=== PATIENT | female | born 1960 | race Caucasian/White ===

== ENCOUNTER 2018-01-16 13:30 | Outpatient (RCR) | payer BC ==
[2017-10-20 13:30] VITALS: BP 130/74
[2017-10-20] MEDS: OMALIZUMAB 150 MG (XOLAIR) VIAL FREE STOCK SQ SCH (13:58)
[2017-10-20 14:16] VITALS: BP 130/74
[2017-11-21 13:00] VITALS: BP 128/80
[2017-11-21] MEDS: OMALIZUMAB 150 MG (XOLAIR) VIAL FREE STOCK SQ SCH (13:32)
[2017-12-19] MEDS: OMALIZUMAB 150 MG (XOLAIR) VIAL FREE STOCK SQ SCH (13:39)
[2017-12-19 13:40] VITALS: BP 139/81
[~2018-01-16] VITALS: Ht 172.7 cm; Wt 86.5 kg
[2018-01-16 14:06] VITALS: BP 134/82
[2018-01-16] MEDS: OMALIZUMAB 150 MG (XOLAIR) VIAL FREE STOCK SQ SCH (14:15)
== END 2018-01-18 | disposition home or self-care (01) ==
LOC: SDC 13:30
PROVIDERS: ATTEND Internal Medicine
DX: L50.8 Other urticaria (principal)
CPT/HCPCS: 96372

== ENCOUNTER → 2018-01-16 | Outpatient (CLI) | payer BC ==
[~2018-01-16] MED LIST: ATOR20TA66 PO; CIME200T86 PO; FEXO1TAB40 PO; PRD1T PO
== END ==
LOC: RAD 11:15
PROVIDERS: ATTEND Internal Medicine
DX: Z12.31 Encounter for screening mammogram for malignant neoplasm of breast (principal)
CPT/HCPCS: 77067

== ENCOUNTER 2018-02-08 06:22 | Outpatient (CLI) | payer BC ==
[~2018-02-08] VITALS: Ht 172.7 cm; Wt 81.9 kg
[2018-02-09] MEDS ORDERED: MONT10TA24 PO (11:09)
[2018-02-09] MEDS ORDERED: CHOL200059 PO (11:09)
[2018-02-09] MEDS ORDERED: CALC-823 PO (11:09)
[2018-02-09] MEDS ORDERED: VNL75T PO (11:09)
== END 2018-02-09 12:30 | disposition home or self-care (01) ==
LOC: PREOP 06:22
PROVIDERS: ATTEND Surgery
DX: Z01.818 Encounter for other preprocedural examination (principal)

== ENCOUNTER 2018-02-15 11:51 | Day surgery (SDC) | payer BC ==
[~2018-02-15] VITALS: Ht 172.7 cm; Wt 81.9 kg
[~2018-02-15 11:51] MED LIST changes: +CALC-823 PO; +CHOL200059 PO; +MONT10TA24 PO; +VNL75T PO
[2018-02-15] MEDS ORDERED: LACTATED RINGERS 1,000 ML IV STA (11:56)
[2018-02-15] MEDS ORDERED: LACTATED RINGERS 1,000 ML IV ONE (11:57)
[2018-02-15 12:03] VITALS: BP 130/100
[2018-02-15] MEDS ORDERED: proPOfol 200 MG/20 ML (DIPRIVAN) VIAL IV ONE ×2 (13:15→13:43)
[2018-02-15] MEDS ORDERED: MIDAZOLAM 2 MG/2 ML (VERSED) VIAL ONE (13:15)
--- NOTE | 2018-02-15 13:23 | Progress Note-Pre Operative ---
Pre-Operative Progress Note H&P Reviewed The H&P was reviewed, patient examined and no changes noted. Time Seen by Provider: 13:20 Date H&P Reviewed: Feb 15, 2018 Time H&P Reviewed: 13:21 Pre-Operative Diagnosis: Change in bowel habits MELY CASTILLO DO Feb 15, 2018 13:23
[2018-02-15 13:50] VITALS: BP 114/62
--- NOTE | 2018-02-15 13:52 | Progress Note-Post Operative ---
Post-Operative Progess Note Surgeon (s)/Bulk Loader (s) Surgeon MELY CASTILLO DO Bulk Loader: Bhargav Glynn MSIII Pre-Operative Diagnosis Change in bowel habits Post-Operative Diagnosis Polyps Int Hemorrhoids Procedure & Operative Findings Date of Procedure 02/15/18 Procedure Performed/Findings Colon with snare Anesthesia Type IV sedation by FICTION AND NONFICTION PROSE WRITER Estimated Blood Loss Estimated blood loss (mL): scant Specimens/Packing Specimens Removed Asc colon polyp desc colon polyp MELY CASTILLO DO Feb 15, 2018 13:52
--- NOTE | 2018-02-15 13:55 | Endoscopy Discharge Instruct ---
Endo Procedure/Findings Findings 1.: Polyp 2.: Internal Hemorrhoids Discharge Instructions - Activity: You might feel a little sleepy until tomorrow. This is due to the medicine you received to relax you. Until tomorrow, you should: NOT drive a car, operate machinery or power tools. NOT drink any alcoholic beverages. NOT make any important decisions or sign importortant papers. Do not return to work until tomorrow, unless otherwise instructed. Resume previous activities tomorrow. Diet: Start by taking liquids. If you tolerate liquids, advance to solid food. Make an appointment for one week. Notify Physician - If you experience excessive bleeding, unusual abdominal pain, fever, or chest pain, contact your doctor immediately. Follow-Up: - I have received and understand the above instructions and will call my doctor if I have any further questions. Patient Signature Date Nurse Signature Other (Relationship) MELY CASTILLO DO Feb 15, 2018 13:55
[2018-02-15 14:00] VITALS: BP 119/64
[2018-02-15 14:10] VITALS: BP 129/72
--- NOTE | 2018-02-15 14:22 | Anesthesia-General Post-Op ---
MAC Patient Condition Mental Status/LOC: Same as Preop Cardiovascular: Satisfactory Nausea/Vomiting: Absent Respiratory: Satisfactory Pain: Controlled Complications: Absent Post Op Complications Complications None Follow Up Care/Instructions Patient Instructions None needed. Anesthesiology Discharge Order Discharge Order Patient is doing well, no complaints, stable vital signs, no apparent adverse anesthesia problems. No complications reported per nursing. CHRISTINA YEH CRNA Feb 15, 2018 14:22
[2018-02-15 14:30] VITALS: BP 122/68
[2018-02-15 14:35] VITALS: BP 122/68
--- NOTE | 2018-02-15 16:44 | OPERATIVE REPORT ---
DATE OF SERVICE: 02/15/2018 PREOPERATIVE DIAGNOSIS: Screening colonoscopy, change in bowel habits. POSTOPERATIVE DIAGNOSES: 1. Colon polyps. 2. Internal hemorrhoids. PROCEDURE: Colonoscopy with snare polypectomy. SURGEON: Arslan Le DO FLOW COORDINATOR: Bhargav Glynn MS3. SPECIMEN: One polyp from the ascending colon and one polyp from the descending colon. BLOOD LOSS: Scant. FLUIDS: Per anesthesia. POSTOPERATIVE CONDITION: Stable. INDICATION FOR PROCEDURE: The patient is a 57-year-old female, who had needed a screening colonoscopy and it has been over 10 years since her last one and she also may had some change in bowel habits. FINDINGS: The patient had two polyps, one in the ascending colon, one in the descending colon and then she had some internal hemorrhoids, but no other obvious pathology seen. PROCEDURE NOTE: After informed consent was obtained, the patient was brought to the endoscopy suite, placed in the bed in left lateral decubitus position. She was administered IV sedation by the COMPLIANCE ADVISOR, who then monitored her vitals the entire time, heart rate, blood pressure and pulse ox and the scope was inserted, pushed in. On the way in, in the ascending colon just outside the cecum I saw a polyp, elected to do a snare polypectomy. Removed this en bloc and then suctioned this up. Continued to the cecum, took a picture of appendiceal orifice and noted the ileocecal valve and then slowly withdrew the scope insufflating to look circumferentially at the khan, looking at the cecum, up the ascending colon to the hepatic flexure, then down the transverse colon to the splenic flexure and then into the descending colon. In the descending colon, I saw another small flat polyp and removed this with another snare polypectomy and then continued down into the sigmoid and finally into the rectum, retroflexed in the rectal vault, saw some minimal internal hemorrhoids and then took a picture of this and then removed the scope. The patient tolerated the procedure and she was recovered in the endoscopy suite. Job ID: [id number] DocumentID: [id number] Dictated Date: 02/15/2018 13:55:23 Financial Services Counselor Date: 02/15/2018 16:43:20 Dictated By: ARSLAN LE DO [facility]
== END 2018-02-15 14:40 | disposition home or self-care (01) ==
LOC: ENDO 11:51
PROVIDERS: ATTEND Surgery
DX: D12.2 Benign neoplasm of ascending colon (principal); D12.4 Benign neoplasm of descending colon; K64.8 Other hemorrhoids; K59.00 Constipation, unspecified; E78.5 Hyperlipidemia, unspecified; Z80.3 Family history of malignant neoplasm of breast; Z79.899 Other long term (current) drug therapy
CPT/HCPCS: 88305

== ENCOUNTER → 2018-03-01 | Outpatient (CLI) | payer BC ==
--- NOTE | 2018-03-01 12:07 | Diagnostic Imaging Report ---
INDICATION: Left breast density. Patient presents for additional views. CORRELATION is made with screening study from 01/16/2018. 2-D and 3-D unilateral diagnostic mammography was performed with CAD. Scattered fibroglandular densities in the left breast are noted. There is some slight nodularity in the retroareolar left breast inferiorly, corresponding with the screening mammogram. This most likely represents fibroglandular tissue and perhaps ductal ectasia but further evaluation with ultrasound is recommended. No suspicious calcifications are seen. IMPRESSION: BI-RADS Category 0 Persistent mild nodularity in the retroareolar left breast. Further evaluation with ultrasound is recommended. ACR BI-RADS Category 0: Incomplete. (Needs additional imaging evaluation). Result letter will be mailed to the patient. Note: At least 10% of breast cancer is not imaged by mammography. Dictated by: Dictated on workstation # [id number]
--- NOTE | 2018-03-01 12:38 | Diagnostic Imaging Report ---
INDICATION: Abnormal mammogram. COMPARISON: Correlation is made to the screening mammograms from 01/16/2018 and 03/01/2018. TECHNIQUE/FINDINGS: Sonographic interrogation of the retroareolar region of the left breast was performed. No sonographic abnormality is seen. No solid or cystic mass is detected. IMPRESSION: No sonographic abnormality is seen. The patient may return to routine annual screening mammography. ACR BI-RADS Category 1: Negative. Dictated by: Dictated on workstation # [id number]
== END ==
LOC: RAD 08:55
PROVIDERS: ATTEND Internal Medicine
DX: R92.8 Other abnormal and inconclusive findings on diagnostic imaging of breast (principal)
CPT/HCPCS: 76642

== ENCOUNTER 2018-04-19 12:50 | Outpatient (RCR) | payer BC ==
[2018-02-13 13:55] VITALS: BP 132/80
[2018-03-20 13:13] VITALS: BP 126/75
[~2018-04-19] VITALS: Ht 172.7 cm; Wt 81.9 kg
[2018-04-19 12:50] VITALS: BP 136/85
[~2018-04-19 12:50] MED LIST changes: +OMALIZUMAB 150 MG (XOLAIR) VIAL FREE STOCK SQ NR; +OMALIZUMAB SUB-Q 150 MG (XOLAIR) VIAL SQ NR
[2018-04-19] MEDS ORDERED: OMALIZUMAB 150 MG (XOLAIR) VIAL FREE STOCK SQ SCH (13:15)
== END 2018-05-14 | disposition home or self-care (01) ==
LOC: SDC 12:50
PROVIDERS: ATTEND Internal Medicine
DX: L50.8 Other urticaria (principal)
CPT/HCPCS: 96372

== ENCOUNTER → 2019-01-02 | Outpatient (CLI) | payer BC ==
[~2019-01-02] MED LIST changes: -OMALIZUMAB 150 MG (XOLAIR) VIAL FREE STOCK SQ NR; -OMALIZUMAB SUB-Q 150 MG (XOLAIR) VIAL SQ NR
--- NOTE | 2019-01-02 10:43 | Diagnostic Imaging Report ---
INDICATION: Screening for osteoporosis. COMPARISON: None. FINDINGS: There are no prior studies available for comparison. The bone mineral density of the hips and spine was measured. The T score for the spine is -3.3. This does indicate osteoporosis. The total T score for the left hip is 0.1 and for the left femoral neck -0.7. These values are within normal limits. The total T score for the right hip is -1.1 and for the right femoral neck -2.0. These values fall within the range of osteopenia. AP Spine L1-L4: [BMD (g/cm2): 0.799] [T-Score: -3.3] [Z-Score: -2.6] [BMD Previous: na] [BMD % Change: na] LT Hip Neck: [BMD (g/cm2): 0.937] [T-Score: -0.7] [Z-Score: 0.2] LT Hip Total: [BMD (g/cm2):1.024] [T-Score:0.1] [Z-Score: 0.7] [BMD Previous: na] [BMD % Change: na] RT Hip Neck: [BMD (g/cm2):0.756] [T-Score:-2.0] [Z-Score:-1.1] RT Hip Total: [BMD (g/cm2):0.864] [T-score:-1.1] [Z-Score:0.5] [BMD Previous:na] [BMD % Change:na] *Indicates significant change from prior examination based on 95% confidence level. World Health Organization criteria for BMD interpretation classify patients as Normal (T-score at or above -1.0), Osteopenic (T-score between -1.0 and -2.5) or Osteoporotic (T-score at or below -2.5). LIMITATIONS AND MODIFICATION: None. FRACTURE RISK (FRAX SCORE): The ten year probability of (%): Major Osteoporotic Fracture: [9.4] Hip Fracture: [1.2] IMPRESSION: 1. There is osteoporosis of the lumbar spine. 2. The bone mineral density of the left hip and left femoral neck are within normal limits while the bone mineral density of the right hip and right femoral neck fall within the range of osteopenia. 3. See below National Osteoporosis Foundation guidelines on when to potentially initiate pharmacologic therapy. Based on the National Osteoporosis Foundation Guidelines, pharmacologic treatment should be initiated in any of the following, unless clinical conditions suggest otherwise: * Any patient with prior fragility fracture of the hip or vertebrae. A spine fracture indicates 5X risk for subsequent spine fracture and 2X risk for subsequent hip fracture. * Osteoporosis (T-score <-2.5). * Postmenopausal women and men age 50 and older with low bone mass/osteopenia (T-score between -1.0 and -2.5) by DXA and 10-year major osteoporotic fracture greater than 20% or a 10-year probability of hip fracture greater than 3%. These fracture risks are supplied above in the FRAX score, if applicable. * Clinician judgement and/or patient preferences may indicate treatment for people with 10-year fracture probabilities above or below these levels. Dictated by: Dictated on workstation # [id number]
== END ==
LOC: RAD 09:11
PROVIDERS: ATTEND Internal Medicine
DX: Z13.820 Encounter for screening for osteoporosis (principal); M81.0 Age-related osteoporosis without current pathological fracture; M85.89 Other specified disorders of bone density and structure, multiple sites
CPT/HCPCS: 77080

== ENCOUNTER → 2019-03-26 | Outpatient (CLI) | payer BC ==
--- NOTE | 2019-03-26 12:12 | Diagnostic Imaging Report ---
INDICATION: Routine screening. COMPARISON: 01/16/2018 and 12/10/2014. TECHNIQUE: 2D and 3D bilateral screening mammography was performed with CAD. FINDINGS: Scattered fibroglandular densities are identified bilaterally. The parenchymal pattern appears stable. No dominant mass or malignant appearing microcalcifications are seen. The axillae are unremarkable. IMPRESSION: No mammographic features suspicious for malignancy are identified. ACR BI-RADS Category 1: Negative. Result letter will be mailed to the patient. Note: At least 10% of breast cancer is not imaged by mammography. Dictated by: Dictated on workstation # [id number]
== END ==
LOC: RAD 08:29
PROVIDERS: ATTEND Internal Medicine
DX: Z12.31 Encounter for screening mammogram for malignant neoplasm of breast (principal)
CPT/HCPCS: 77067

== ENCOUNTER 2019-10-21 15:01 | Emergency (ER) | payer BC ==
[~2019-10-21] VITALS: Ht 170.1 cm; Wt 77.1 kg
[~2019-10-21 15:01] MED LIST changes: -MONT10TA24 PO; +MONT10TA26 PO
--- OUTSIDE RECORDS SUMMARY | 2019-10-21 15:06 | XMS REPORT | Continuity of Care Document ---
Author Organization Unknown Address Unknown Phone Unavailable Allergies Active Description Code Type Severity Reaction Onset Reported/Identified Relationship to Patient Clinical Status Yes famotidine [id number] Drug Allerg y Unknown N/A 10/20/2017 Yes No Allergy Information Available [id number] Drug Allergy Unknown N/A 018 Yes famotidine [id number] Drug Allerg y Moderate LEG SWELLING, H 02/08/2018 Medications There is no data. 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 AND 11/03/2017 MARINELLI DO, HUNTER Ot L50.9 URTICARIA, UNSPECIFIED 11/03/2017 MARINELLI DO, HUNTER Ot R73.9 HYPERGLYCEMIA, UNSPECIFIED 11/03/2017 MARINELLI DO, HUNTER Ot L50.8 OTHER URTICARIA 11/21/2017 MARINELLI DO, HUNTER Ot L50.8 OTHER URTICARIA 11/21/2017 MARINELLI DO, HUNTER Ot L50.8 OTHER URTICARIA 11/21/2017 MARINELLI DO, HUNTER Ot L50.8 OTHER URTICARIA 11/21/2017 MARINELLI DO, HUNTER Ot L50.8 OTHER URTICARIA 12/12/2017 MARINELLI DO, HUNTER Ot L50.8 OTHER URTICARIA 12/19/2017 MARINELLI DO, HUNTER Ot L50.8 OTHER URTICARIA 12/19/2017 MARINELLI DO, HUNTER Ot L50.8 OTHER URTICARIA 01/04/2018 MARINELLI DO, HUNTER Ot L50.8 OTHER URTICARIA 01/16/2018 MARINELLI DO, HUNTER Ot D49.7 NEOPLM OF UNSP BEHAV OF ENDO GLANDS AND 01/16/2018 MARINELLI DO, HUNTER Ot L50.9 URTICARIA, UNSPECIFIED 01/16/2018 MARINELLI DO, HUNTER Ot R73.9 HYPERGLYCEMIA, UNSPECIFIED 01/16/2018 MARINELLI DO, HUNTER Ot L50.8 OTHER URTICARIA 01/16/2018 MARINELLI DO, HUNTER Ot L50.8 OTHER URTICARIA 01/16/2018 MARINELLI DO, HUNTER Ot L50.8 OTHER URTICARIA 01/17/2018 MARINELLI DO, HUNTER Ot Z12.31 ENCNTR SCREEN MAMMOGRAM FOR MALIGNANT NE 01/17/2018 MARINELLI DO, HUNTER Ot L50.8 OTHER URTICARIA 01/18/2018 MARINELLI DO, HUNTER Ot L50.8 OTHER URTICARIA 01/18/2018 MARINELLI DO, HUNTER Ot L50.8 OTHER URTICARIA 02/01/2018 MARINELLI DO, HUNTER Ot Z12.31 ENCNTR SCREEN MAMMOGRAM FOR MALIGNANT NE 02/08/2018 MARINELLI DO, HUNTER Ot L50.8 OTHER URTICARIA 02/09/2018 DELMAN DO, MELY B Ot Z01.8 18 ENCOUNTER FOR OTHER PREPROCEDURAL EXAMIN 02/09/2018 DELMAN DO, MELY B Ot Z01.8 18 ENCOUNTER FOR OTHER PREPROCEDURAL EXAMIN 02/13/2018 MARINELLI DO, HUNTER Ot L50.8 OTHER URTICARIA 02/13/2018 MARINELLI DO, HUNTER Ot L50.8 OTHER URTICARIA 02/15/2018 DELMAN DO, MELY B Ot D12.2 BENIGN NEOPLASM OF ASCENDING COLON 02/15/2018 ANNA TSE, MELY B Ot D12.4 BENIGN NEOPLASM OF DESCENDING COLON 02/15/2018 KEIRAMAN DO, MELY B Ot E78.5 HYPERLIPIDEMIA, UNSPECIFIED 02/15/2018 DELMAN DO, MELY B Ot K59.0 0 CONSTIPATION, UNSPECIFIED 02/15/2018 DELMAN DO, MELY B Ot K64.8 OTHER HEMORRHOIDS 02/15/2018 DELMAN DO, MELY B Ot Z79.8 99 OTHER CARE HOME (CURRENT) DRUG THERAPY 02/15/2018 DELMAN DO, MELY B Ot Z80.3 FAMILY HISTORY OF MALIGNANT NEOPLASM OF 02/21/2018 MARINELLI DO, HUNTER Ot L50.8 OTHER URTICARIA 02/22/2018 DELMAN DO, MELY B Ot D12.2 BENIGN NEOPLASM OF ASCENDING COLON 02/22/2018 DELMAN DO, MELY B Ot D12.4 BENIGN NEOPLASM OF DESCENDING COLON 02/22/2018 DELMAN DO, MELY B Ot E78.5 HYPERLIPIDEMIA, UNSPECIFIED 02/22/2018 DELMAN DO, MELY B Ot K64.8 OTHER HEMORRHOIDS 02/22/2018 DELMAN DO, MELY B Ot Z79.8 99 OTHER CARE HOME (CURRENT) DRUG THERAPY 02/22/2018 DELMAN DO, MEYL B Ot Z80.3 FAMILY HISTORY OF MALIGNANT NEOPLASM OF 03/02/2018 DELMAN DO, MELY B Ot D12.2 BENIGN NEOPLASM OF ASCENDING COLON 03/02/2018 DELMAN DO, MELY B Ot D12.4 BENIGN NEOPLASM OF DESCENDING COLON 03/02/2018 DELMAN DO, MELY B Ot E78.5 HYPERLIPIDEMIA, UNSPECIFIED 03/02/2018 DELKRISTINE DO, MELY B Ot K59.0 0 CONSTIPATION, UNSPECIFIED 03/02/2018 DELMAN DO, MELY B Ot K64.8 OTHER HEMORRHOIDS 03/02/2018 DELMAN DO, MELY B Ot Z79.8 99 OTHER CARE HOME (CURRENT) DRUG THERAPY 03/02/2018 DELMAN DO, MELY B Ot Z80.3 FAMILY HISTORY OF MALIGNANT NEOPLASM OF 03/06/2018 MARINELLI DO, HUNTER Ot R92.8 OTH ABN AND INCONCLUSIVE FINDINGS ON DX 03/20/2018 MARINELLI DO, HUNTER Ot L50.8 OTHER URTICARIA 03/20/2018 MARINELLI DO, HUNTER Ot L50.8 OTHER URTICARIA 04/19/2018 MARINELLI DO, HUNTER Ot L50.8 OTHER URTICARIA 04/19/2018 MARINELLI DO, HUNTER Ot L50.8 OTHER URTICARIA 04/19/2018 MARINELLI DO, HUNTER Ot L50.8 OTHER URTICARIA 05/14/2018 MARINELLI DO, HUNTER Ot L50.8 OTHER URTICARIA 05/15/2018 MARINELLI DO, HUNTER Ot L50.8 OTHER URTICARIA 08/10/2018 MARINELLI DO, HUNTER Ot D49.7 NEOPLM OF UNSP BEHAV OF ENDO GLANDS AND 08/10/2018 MARINELLI DO, HUNTER Ot L50.9 URTICARIA, UNSPECIFIED 08/10/2018 MARINELLI DO, HUNTER Ot R73.9 HYPERGLYCEMIA, UNSPECIFIED 08/10/2018 MARINELLI DO, HUNTER Ot Z12.31 ENCNTR SCREEN MAMMOGRAM FOR MALIGNANT NE 08/10/2018 MARINELLI DO, HUNTER Ot R92.8 OTH ABN AND INCONCLUSIVE FINDINGS ON DX 08/10/2018 MARINELLI DO, HUNTER Ot L50.8 OTHER URTICARIA 08/15/2018 MARINELLI DO, HUNTER Ot D49.7 NEOPLM OF UNSP BEHAV OF ENDO GLANDS AND 08/15/2018 MARINELLI DO, HUNTER Ot L50.9 URTICARIA, UNSPECIFIED 08/15/2018 MARINELLI DO, HUNTER Ot R73.9 HYPERGLYCEMIA, UNSPECIFIED 08/15/2018 MARINELLI DO, HUNTER Ot Z12.31 ENCNTR SCREEN MAMMOGRAM FOR MALIGNANT NE 08/15/2018 MARINELLI DO, HUNTER Ot R92.8 OTH ABN AND INCONCLUSIVE FINDINGS ON DX 08/15/2018 MARINELLI DO, HUNTER Ot L50.8 OTHER URTICARIA 09/25/2018 MARINELLI DO, HUNTER Ot D49.7 NEOPLM OF UNSP BEHAV OF ENDO GLANDS AND 09/25/2018 MARINELLI DO, HUNTER Ot L50.9 URTICARIA, UNSPECIFIED 09/25/2018 MARINELLI DO, HUNTER Ot R73.9 HYPERGLYCEMIA, UNSPECIFIED 09/25/2018 MARINELLI DO, HUNTER Ot Z12.31 ENCNTR SCREEN MAMMOGRAM FOR MALIGNANT NE 09/25/2018 MARINELLI DO, HUNTER Ot R92.8 OTH ABN AND INCONCLUSIVE FINDINGS ON DX 09/25/2018 MARINELLI DO HUNTER Ot L50.8 OTHER URTICARIA 01/04/2019 YVES DO HUNTER Ot M81.0 AGE-RELATED OSTEOPOROSIS W/O CURRENT PAT 01/04/2019 MARINELLI DO HUNTER Ot M85.89 OTH DISRD OF BONE DENSITY AND STRUCTURE, 01/04/2019 MARINELLI DO HUNTER Ot Z13.82 0 ENCOUNTER FOR SCREENING FOR OSTEOPOROSIS 01/18/2019 MARINELLI DO HUNTER Ot M81.0 AGE-RELATED OSTEOPOROSIS W/O CURRENT PAT 01/18/2019 MARINELLI DO, HUNTER Ot M85.89 OTH DISRD OF BONE DENSITY AND STRUCTURE, 01/18/2019 MARINELLI DO HUNTER Ot Z13.82 0 ENCOUNTER FOR SCREENING FOR OSTEOPOROSIS 03/27/2019 YVES TSE HUNTER Ot Z12.31 ENCNTR SCREEN MAMMOGRAM FOR MALIGNANT NE 10/21/2019 YVES TSE HUNTER Ot D49.7 NEOPLM OF UNSP BEHAV OF ENDO GLANDS AND 10/21/2019 MARINELLI DO HUNTER Ot L50.9 URTICARIA, UNSPECIFIED 10/21/2019 MARINELLI DO HUNTER Ot R73.9 HYPERGLYCEMIA, UNSPECIFIED 10/21/2019 MARINELLI DO HUNTER Ot Z12.31 ENCNTR SCREEN MAMMOGRAM FOR MALIGNANT NE 10/21/2019 YVES TSE HUNTER Ot R92.8 OTH ABN AND INCONCLUSIVE FINDINGS ON DX 10/21/2019 YVES TSE HUNTER Ot L50.8 OTHER URTICARIA 10/21/2019 YVES DO HUNTER Ot M81.0 AGE-RELATED OSTEOPOROSIS W/O CURRENT PAT 10/21/2019 MARINELLI DO HUNTER Ot M85.89 OTH DISRD OF BONE DENSITY AND STRUCTURE, 10/21/2019 YVES TSE HUNTER Ot Z13.82 0 ENCOUNTER FOR SCREENING FOR OSTEOPOROSIS 10/21/2019 YVES TSE HUNTER Ot Z12.31 ENCNTR SCREEN MAMMOGRAM FOR MALIGNANT NE Procedures There is no data. Results Test Result Range [id number] - 10/20/17 11:12 Serum or plasma urea nitrogen measurement (mass/volume ) 26 mg/dL 7-18 Serum or plasma creatinine measurement (mass/volume) 0.77 mg/dL 0.60-1.30 Serum or plasma urea nitrogen/creatinine mass ratio 34 NRG Serum or plasma creatinine measurement w ith calculation of estimated glomerular filtration rate > NRG Encounters ACCT No. Visit Date/Time Discharge Status Pt. Type Provider Facility Loc./Unit Complaint [id number] 03/26/2019 08:29:00 23:59:59 CLS Outpatient HUNTER MARINELLI DO [facility] RAD SCREENING [id number] 01/02/2019 09:11:00 019 23:59:59 CLS Outpatient HUNTER MARINELLI DO [facility] RAD OSTEOPENIA OF MULTIPLE SITES [id number] 05/17/2018 12:00:00 019 23:59:59 CLS Preadmit HUNTER MARINELLI DO [facility] CHRONIC URTICARIA [id number] 05/15/2018 00:12:00 019 23:59:59 CLS Preadmit HUNTER MARINELLI DO [facility] CHRONIC URTICARIA [id number] 04/19/2018 12:50:00 019 00:01:00 DIS Outpatient YVES TSE HUNTER [facility] CHRONIC URTICARIA [id number] 03/01/2018 08:55:00 018 23:59:59 CLS Outpatient YVES TSE HUNTER [facility] RAD ABN MAMMO OF LT BREAST [id number] 02/15/2018 11:51:00 018 14:40:00 DIS Outpatient MELY CASTILLO DO [facility] ENDO SCREENING [id number] 02/08/2018 06:22:00 018 12:30:00 DIS Outpatient MELY CASTILLO DO [facility] PREOP COLONOSCOPY [id number] 01/16/2018 13:30:00 018 00:01:00 DIS Outpatient YVES TSE HUNTER [facility] CHRONIC URTICARIA [id number] 01/16/2018 11:15:00 018 23:59:59 CLS Outpatient YVES TSE HUNTER [facility] RAD SCREENING [id number] 10/20/2017 10:46:00 018 23:59:59 CLS Outpatient YVES TSE HUNTER [facility] RAD NEOPLASM OF UNSPECIFED OF ENDOCRINE GLANDS [id number] 10/21/2019 15:02:[address] Emergency TESSIE RODRIGUEZ, WILNER Dumas [facility] ER FALL/BACK PAIN
[2019-10-21] MEDS ORDERED: ONDANSETRON 4 MG (ZOFRAN) ORAL DISSOLVE TAB PO ONE (15:45)
--- NOTE | 2019-10-21 17:18 | Diagnostic Imaging Report ---
EXAMINATION: CT lumbar spine without contrast. TECHNIQUE: Multiple contiguous axial images were obtained through the lumbar spine without the use of intravenous contrast. Sagittal and coronal reformations were then performed. All CT scans use one or more of the following dose optimizing techniques: automated exposure control, MA and/or KvP adjustment based on patient size and exam type or iterative reconstruction. HISTORY: Fall. COMPARISON: None available. FINDINGS: There is mild dextrocurvature of the lumbar spine with right lateral listhesis of L3 on L4. There is an acute appearing mild compression fracture of L1 with approximately 20% height loss. There is no retropulsion. There is mild multilevel degenerative facet disease. There is multilevel degenerative disc disease most pronounced at L3-L4 and L2-L3. There is no spinal canal stenosis. Limited views of the abdomen and pelvis show no soft tissue abnormality. The aorta is normal. IMPRESSION: Acute appearing mild compression fracture of L1 with approximately 20% height loss. No retropulsion. Dictated by: Dictated on workstation # [id number]
--- NOTE | 2019-10-21 17:31 | ED Back Pain ---
General Chief Complaint: Back Problems Stated Complaint: FALL/BACK PAIN Nursing Triage Note: Pt reports walking and carrying something when pt fell and landed on the R side with a twisting motion. Pt reports pain is worse in the lower back area and pt cannot sit in a chair. Pt reports pain is relieved some with lying or standing. Nursing Sepsis Screen: No Definite Risk Allergies and Home Medications Allergies Coded Allergies: famotidine (Unverified Allergy, Intermediate, LEG SWELLING, HIVES, 02/08/18) Home Medications Atorvastatin Calcium 20 Mg Tablet, 20 MG PO HS, (Reported) Calcium Carbonate 500 Mg Tablet, 500 MG PO DAILY, (Reported) Cholecalciferol (Vitamin D3) 2,000 Unit Tablet, 2,000 UNIT PO DAILY, (Reported) Cimetidine 200 Mg Tablet, 200 MG PO BID, (Reported) Fexofenadine/Pseudoephedrine 1 Each Tab.er.12h, 1 EACH PO BID, (Reported) Montelukast Sodium 10 Mg Tablet, 10 MG PO DAILY, (Reported) Venlafaxine HCl 75 Mg Tab, 75 MG PO DAILY, (Reported) Past Pbcnzfw-Fedurl-Ocyctz Hx Patient Social History Alcohol Use: Occasionally Uses Recreational Drug Use: No 2nd Hand Smoke Exposure: No Recent Foreign Travel: No Contact w/Someone Who Travel: No Recent Infectious Disease Expo: No Recent Hopitalizations: No Immunizations Up To Date Tetanus Booster (TDap): Unknown Seasonal Allergies Seasonal Allergies: Yes Past Medical History Surgeries: Yes (LUMPECTOMY) Respiratory: No Currently Using CPAP: No Currently Using BIPAP: No Cardiac: Yes High Cholesterol Neurological: No Reproductive Disorders: No Female Reproductive Disorders: Denies SELLING SPECIALIST History: Menopausal Sexually Transmitted Disease: No HIV/AIDS: No Gastrointestinal: Yes (CHANGE IN BOWELS) Musculoskeletal: Yes (OSTEOARTHRITIS) Endocrine: No Loss of Vision: Denies Hearing Impairment: Denies Cancer: No Psychosocial: Yes Depression Integumentary: No Blood Disorders: No Adverse Reaction/Blood Tranf: No (N/A) Physical Exam Vital Signs Vital Signs - First Documented 10/21/19 15:03 Temp 36.4 Pulse 77 Resp 20 B/P (MAP) 151/83 (105) Pulse Ox 100 O2 Delivery Room Air Capillary Refill : Less Than 3 Seconds Height, Weight, BMI Height: 5'8.00" Weight: 180lbs. 10.0oz. 81.476210zx; 26.00 BMI Method: Progress/Results/Core Measures Results/Orders My Orders Orders - PEPPER HARPER Hydrocodone/Apap 5/325 Tablet (Lortab 5 (10/21/19 18:15) Rx-Tramadol Hcl (Rx-Ultram) (10/21/19 18:07) Medications Given in ED Current Medications Medications Dose Ordered Sig/Luis Route Start Time Stop Time Status Last Admin Dose Admin Acetaminophen/ Hydrocodone Bitart 1 tab ONCE ONCE PO 10/21/19 18:15 10/21/19 18:16 DC 10/21/19 18:22 1 TAB Ondansetron HCl 4 mg ONCE ONCE PO 10/21/19 15:45 10/21/19 15:46 DC 10/21/19 15:57 4 MG Vital Signs/I&O 10/21/19 10/21/19 15:03 18:25 Temp 36.4 36.4 Pulse 77 81 Resp 20 20 B/P (MAP) 151/83 (105) 157/88 (105) Pulse Ox 100 98 O2 Delivery Room Air Room Air Blood Pressure Mean: 105 Progress Progress Note : Progress Note [address] Mcqueen, reviewed CT L1 compression fx. Patient reports pain is tolerable, if she is lying. Will give Hydrocodone for pain, walker for ambulation. Neurovascular status intact bilateral lower extremities, pain only in low back. 1744 May consider appt with Dr. Valentin for kyphoplasty, since loss of 20%, could be treated conservatively. Discharge instructions and return precautions reviewed with the patient. Diagnostic Imaging Diagonstic Imaging: CT Comments NAME: SEBASTIÁN BROWN [facility] REC#: [id number] PT STATUS: REG ER : 1960 PHYSICIAN: WILNER KURTZ MD ADMIT DATE: 10/21/19/ER Draft Date of Exam:10/21/19 CT LUMBAR SPINE WO EXAMINATION: CT lumbar spine without contrast. TECHNIQUE: Multiple contiguous axial images were obtained through the lumbar spine without the use of intravenous contrast. Sagittal and coronal reformations were then performed. All CT scans use one or more of the following dose optimizing techniques: automated exposure control, MA and/or KvP adjustment based on patient size and exam type or iterative reconstruction. HISTORY: Fall. COMPARISON: None available. FINDINGS: There is mild dextrocurvature of the lumbar spine with right lateral listhesis of L3 on L4. There is an acute appearing mild compression fracture of L1 with approximately 20% height loss. There is no retropulsion. There is mild multilevel degenerative facet disease. There is multilevel degenerative disc disease most pronounced at L3-L4 and L2-L3. There is no spinal canal stenosis. Limited views of the abdomen and pelvis show no soft tissue abnormality. The aorta is normal. IMPRESSION: Acute appearing mild compression fracture of L1 with approximately 20% height loss. No retropulsion. Dictated on workstation # [id number] Dict: 10/21/19 171 Trans: 10/21/191716 [facility] [id number] Interpreted by: RANJAN JEWELL MD Electronically signed by: Reviewed: Reviewed by Me Departure Impression Primary Impression: Compression fracture of L1 lumbar vertebra Qualified Codes: S32.010A - Wedge compression fracture of first lumbar vertebra, initial encounter for closed fracture Additional Impression: Fall Qualified Codes: W19.XXXA - Unspecified fall, initial encounter Disposition: 01 HOME, SELF-CARE Condition: Improved Departure-Patient Inst. Decision time for Depature: 17:35 Referrals: HUNTER MARINELLI DO (PCP/Family) Primary Care Physician YEMI VALENTIN MD Patient Instructions: Low Back Pain (DC), Vertebral Compression Fracture (DC) Add. Discharge Instructions: Ice to low back for 20 minutes every 2 hours while awake for the first 24 hours then you may alternate between heat and ice. Use a walker as needed for ambulation. You may alternate between Tylenol 650 mg and ibuprofen 600 mg every 4 hours for pain. You may use the tramadol for more severe pain. Follow-up with Dr. Marinelli if symptoms are not improving or worsen. Call to schedule an appointment with Dr. Valentin and you can discussed kyphoplasty. Return to the emergency department for new, urgent health care needs. All discharge instructions reviewed with patient and/or family. Voiced understanding. Copy Copies To 1: HUNTER MARINELLI DO Copies To 2: YEMI VALENTIN MD, AMY ARNP Oct 21, 2019 17:31
[2019-10-21] MEDS ORDERED: RX-TRAMADOL 50 MG (ULTRAM) TAB PPK#4 PO STA (18:07)
[2019-10-21] MEDS ORDERED: HYDROcodone/APAP 5 MG/325 MG (LORTAB) TAB PO ONE (18:15)
[2019-10-21 18:25] VITALS: BP 157/88
== END 2019-10-21 18:28 | disposition home or self-care (01) ==
LOC: EDUNIT# 15:01 → ER 15:02
DX: S32.010A Wedge compression fracture of first lumbar vertebra, initial encounter for closed fracture (principal); W19.XXXA Unspecified fall, initial encounter; E78.00 Pure hypercholesterolemia, unspecified; M19.91 Primary osteoarthritis, unspecified site; F32.9 Major depressive disorder, single episode, unspecified
CPT/HCPCS: 72131

== ENCOUNTER → 2019-10-25 | Outpatient (CLI) | payer BC ==
--- NOTE | 2019-10-25 11:44 | Diagnostic Imaging Report ---
PROCEDURE: MRI lumbar spine. TECHNIQUE: Multiplanar, multisequence MRI of the lumbar spine was performed without contrast. INDICATION: Fall. Lumbar spine fracture. COMPARISON: CT lumbar spine without contrast 10/21/2019. FINDINGS: There are 5 lumbar-type vertebral bodies for the purposes of this report. Superior endplate compression deformity of L1 results in approximately 30% height loss. There is edema within the vertebral body. No retropulsion or involvement of the posterior elements is identified. Vertebral body heights are otherwise preserved. Diffuse Modic type I degenerative endplate changes at every level of the lumbar spine. Schmorl's nodes in the superior endplates of L2 and L4. No abnormal signal in the conus which terminates at the level of L1. Normal morphology of the cauda equina. Visualized paravertebral soft tissues are unremarkable. L1-L2: No spinal canal, lateral recess or neural foraminal narrowing. There is increased fluid within the facet joints. L2-L3: Disc space height loss contributes to mild bilateral neural foraminal narrowing. Facet arthropathy and annular disc bulges result in mild bilateral lateral recess narrowing. No spinal canal narrowing. L3-L4: Posterior disc osteophyte complex, ligamentous hypertrophy and facet arthropathy result in moderate bilateral lateral recess and mild spinal canal narrowing. Mild to moderate bilateral neural foraminal narrowing. L4-L5: No spinal canal or lateral recess narrowing. Facet arthropathy and disc space height loss contributes to mild right neural foraminal narrowing. L5-S1: No spinal canal, lateral recess or neural foraminal narrowing. IMPRESSION: 1. Acute superior endplate compression fracture of L1 results in approximately 30% height loss. No retropulsion. There is some increased fluid within the L1-L2 facet joints. 2. Spondylotic changes result in scattered mild and moderate lateral recess and neural foraminal narrowing detailed above level by level. No high-grade spinal canal narrowing. Dictated by: Dictated on workstation # [id number]
== END ==
LOC: RAD 09:53
PROVIDERS: ATTEND Internal Medicine
DX: S32.010G Wedge compression fracture of first lumbar vertebra, subsequent encounter for fracture with delayed healing (principal); M47.816 Spondylosis without myelopathy or radiculopathy, lumbar region; X58.XXXD Exposure to other specified factors, subsequent encounter
CPT/HCPCS: 72148

== ENCOUNTER → 2019-12-18 | Outpatient (CLI) | payer BC ==
[~2019-12-18] VITALS: Ht 170 cm; Wt 79.0 kg
[~2019-12-18] MED LIST changes: +DENOSUMAB 60 MG/1 ML (PROLIA) SQ SCH
[2019-12-18 11:11] VITALS: BP 184/80
== END ==
LOC: SDC 10:46
PROVIDERS: ATTEND Internal Medicine
DX: M81.0 Age-related osteoporosis without current pathological fracture (principal)
CPT/HCPCS: 96372

== ENCOUNTER 2019-12-26 08:27 | Outpatient (RCR) | payer BC ==
[~2019-12-26 08:27] MED LIST changes: -DENOSUMAB 60 MG/1 ML (PROLIA) SQ SCH
== END 2019-12-26 09:16 | disposition home or self-care (01) ==
PROVIDERS: ATTEND Orthopaedic Surgery Orthopaedic Surgery of the Spine
DX: S32.019A Unspecified fracture of first lumbar vertebra, initial encounter for closed fracture (principal); W19.XXXA Unspecified fall, initial encounter

== ENCOUNTER → 2020-06-09 | Outpatient (CLI) | payer BC ==
[~2020-06-09] MED LIST changes: -MONT10TA26 PO; +MONT10TA32 PO
--- NOTE | 2020-06-09 10:12 | Diagnostic Imaging Report ---
Digital mammogram. Indication: Bilateral screening This study was compared to the prior exams of 03/26/2019, 01/16/2018 and 12/10/2014. At this time there are no current complaints. The current study was also evaluated with a Computer Aided Detection (CAD) system. FINDINGS: There are scattered fibroglandular densities in both breasts which could obscure a lesion. Overall, there does not appear to have been any significant change when compared to the prior exam. No primary or secondary sign of malignancy is noted. IMPRESSION: There is no radiographic evidence for malignancy ACR BI-RADS Category 1: Negative. Result letter will be mailed to the patient. Note: At least 10% of breast cancer is not imaged by mammography. Dictated by: Dictated on workstation # [id number]
== END ==
LOC: RAD 09:30
PROVIDERS: ATTEND Internal Medicine
DX: Z12.31 Encounter for screening mammogram for malignant neoplasm of breast (principal)
CPT/HCPCS: 77063; 77067

== ENCOUNTER → 2020-06-25 | Outpatient (CLI) | payer BC ==
[~2020-06-25] MED LIST changes: +DENOSUMAB 60 MG/1 ML (PROLIA) SQ SCH
[2020-06-25 13:02] VITALS: BP 117/79
== END ==
LOC: SDC 12:49
PROVIDERS: ATTEND Internal Medicine
DX: M81.0 Age-related osteoporosis without current pathological fracture (principal)
CPT/HCPCS: 96372

== ENCOUNTER → 2021-01-27 | Outpatient (CLI) | payer BC ==
[2021-01-27 10:35] VITALS: BP 126/79
== END ==
LOC: SDC 10:06
PROVIDERS: ATTEND Internal Medicine
DX: M81.0 Age-related osteoporosis without current pathological fracture (principal)
CPT/HCPCS: 96372

== ENCOUNTER → 2021-06-24 | Outpatient (CLI) | payer BC ==
[~2021-06-24] MED LIST changes: -DENOSUMAB 60 MG/1 ML (PROLIA) SQ SCH; +MONT-40 PO; -MONT10TA32 PO
--- NOTE | 2021-06-24 11:07 | Diagnostic Imaging Report ---
INDICATION: Routine screening. COMPARISON: 06/09/2020 and 03/26/2019. TECHNIQUE: 2D and 3D bilateral screening mammography was performed with CAD. FINDINGS: Both breasts are heterogeneously dense, limiting the sensitivity of mammography. The parenchymal pattern is stable. No mass or malignant-appearing microcalcifications are seen. The axillae are unremarkable. IMPRESSION: No mammographic features suspicious for malignancy are identified. ACR BI-RADS Category 1: Negative. Result letter will be mailed to the patient. Note: At least 10% of breast cancer is not imaged by mammography. Dictated by: Dictated on workstation # [id number]
== END ==
LOC: RAD 10:15
PROVIDERS: ATTEND Internal Medicine
DX: Z12.31 Encounter for screening mammogram for malignant neoplasm of breast (principal)
CPT/HCPCS: 77063; 77067

== ENCOUNTER → 2021-07-29 | Outpatient (CLI) | payer BC ==
[~2021-07-29] VITALS: Ht 170.2 cm; Wt 79.5 kg
[~2021-07-29] MED LIST changes: +DENOSUMAB 60 MG/1 ML (PROLIA) SQ SCH; +FEXO-338 PO
[2021-07-29 10:35] VITALS: BP 133/81
== END ==
LOC: SDC 09:50
PROVIDERS: ATTEND Internal Medicine
DX: M81.0 Age-related osteoporosis without current pathological fracture (principal)
CPT/HCPCS: 96372

== ENCOUNTER → 2022-02-17 | Outpatient (CLI) | payer BC, OTHER ==
[~2022-02-17] VITALS: Ht 170 cm; Wt 79.5 kg
[~2022-02-17] MED LIST changes: +DENOSUMAB 60 MG/1 ML (PROLIA) SQ ONE; -DENOSUMAB 60 MG/1 ML (PROLIA) SQ SCH
[2022-02-17 13:25] VITALS: BP 135/82
== END ==
LOC: SDC 13:02
PROVIDERS: ATTEND Internal Medicine
DX: M81.0 Age-related osteoporosis without current pathological fracture (principal); Z79.899 Other long term (current) drug therapy
CPT/HCPCS: 96372

== ENCOUNTER → 2022-06-22 | Outpatient (CLI) | payer BC, OTHER ==
[~2022-06-22] MED LIST changes: -DENOSUMAB 60 MG/1 ML (PROLIA) SQ ONE
--- NOTE | 2022-06-22 10:35 | Diagnostic Imaging Report ---
INDICATION: Postmenopausal state COMPARISON: 01/02/2019 FINDINGS: AP Spine L1-L4: [BMD (g/cm2): 1.034] [T-Score: -1.4] [Z-Score: -0.6] [BMD Previous: 0.799] [BMD % Change: 29.4]* LT Hip Neck: [BMD (g/cm2): 1.069] [T-Score: 0.2] [Z-Score: 1.2] LT Hip Total: [BMD (g/cm2):1.116] [T-Score:0.9] [Z-Score: 1.5] [BMD Previous: 1.024] [BMD % Change: 9.0] RT Hip Neck: [BMD (g/cm2):0.777] [T-Score:-1.9] [Z-Score:-0.9] RT Hip Total: [BMD (g/cm2):0.887] [T-score:-1.0] [Z-Score:-0.3] [BMD Previous:0.864] [BMD % Change:2.7] *Indicates significant change from prior examination based on 95% confidence level. World Health Organization criteria for BMD interpretation classify patients as Normal (T-score at or above -1.0), Osteopenic (T-score between -1.0 and -2.5) or Osteoporotic (T-score at or below -2.5). LIMITATIONS AND MODIFICATION: None. FRACTURE RISK (FRAX SCORE): FRAX score is not calculated as the patient has been treated for osseous demineralization. IMPRESSION: 1. Osteopenia (Low bone mass). 2. Bone mineral density within the lumbar spine has significantly increased since the prior examination. Bone mineral density within the bilateral hips has not significantly changed since the prior exam. 3. See below National Osteoporosis Foundation guidelines on when to potentially initiate pharmacologic therapy. Based on the National Osteoporosis Foundation Guidelines, pharmacologic treatment should be initiated in any of the following, unless clinical conditions suggest otherwise: * Any patient with prior fragility fracture of the hip or vertebrae. A spine fracture indicates 5X risk for subsequent spine fracture and 2X risk for subsequent hip fracture. * Osteoporosis (T-score <-2.5). * Postmenopausal women and men age 50 and older with low bone mass/osteopenia (T-score between -1.0 and -2.5) by DXA and 10-year major osteoporotic fracture greater than 20% or a 10-year probability of hip fracture greater than 3%. These fracture risks are supplied above in the FRAX score, if applicable. * Clinician judgement and/or patient preferences may indicate treatment for people with 10-year fracture probabilities above or below these levels. Dictated by: Dictated on workstation # [id number]
--- NOTE | 2022-06-22 15:11 | Diagnostic Imaging Report ---
Indication: Routine screening. Comparison is made with prior mammograms from 06/24/2021 and 06/09/2020. 2-D and 3-D bilateral screening mammography was performed with CAD. Scattered fibroglandular densities are identified bilaterally. The parenchymal pattern is stable. No mass or malignant-appearing microcalcifications are seen. Axillae are unremarkable. IMPRESSION: BI-RADS Category 1 No mammographic features suspicious for malignancy are identified. ACR BI-RADS Category 1: Negative. Result letter will be mailed to the patient. Note: At least 10% of breast cancer is not imaged by mammography. Dictated by: Dictated on workstation # [id number]
== END ==
LOC: RAD 09:09
PROVIDERS: ATTEND Internal Medicine
DX: Z12.31 Encounter for screening mammogram for malignant neoplasm of breast (principal); M85.88 Other specified disorders of bone density and structure, other site; M81.0 Age-related osteoporosis without current pathological fracture
CPT/HCPCS: 77063; 77067; 77080

== ENCOUNTER → 2022-08-23 | Outpatient (CLI) | payer BC, OTHER ==
[~2022-08-23] MED LIST changes: +DENOSUMAB 60 MG/1 ML (PROLIA) SQ SCH
[2022-08-23 09:15] VITALS: BP 150/91
== END ==
LOC: SDC 08:53
PROVIDERS: ATTEND Internal Medicine
DX: M81.0 Age-related osteoporosis without current pathological fracture (principal)
CPT/HCPCS: 96372

== ENCOUNTER 2022-12-15 09:22 | Outpatient (RCR) | payer BC ==
[~2022-12-15 09:22] MED LIST changes: -DENOSUMAB 60 MG/1 ML (PROLIA) SQ SCH
[2022-12-15] MEDS ORDERED: OMALIZUMAB INJECTION 150 MG VIAL SQ SCH (09:45)
[2022-12-15 10:20] VITALS: BP 129/75
== END 2022-12-23 | disposition home or self-care (01) ==
LOC: SDC 09:22
PROVIDERS: ATTEND Internal Medicine
DX: L50.9 Urticaria, unspecified (principal)
CPT/HCPCS: 96372

== ENCOUNTER 2023-02-16 06:16 | Outpatient (CLI) | payer BC ==
[~2023-02-16] VITALS: Ht 170.2 cm; Wt 80.7 kg
[2023-02-16] MEDS ORDERED: AMLO-250 PO (15:15)
[2023-02-16] MEDS ORDERED: EZET10TA49 PO (15:15)
== END 2023-02-16 15:18 | disposition home or self-care (01) ==
LOC: PREOP 06:16
PROVIDERS: ATTEND Surgery
DX: Z01.818 Encounter for other preprocedural examination (principal)

== ENCOUNTER 2023-02-28 08:18 | Day surgery (SDC) | payer BC ==
[~2023-02-28] VITALS: Ht 170.2 cm; Wt 80.7 kg
[~2023-02-28 08:18] MED LIST changes: +AMLO-250 PO; +EZET10TA49 PO
[2023-02-28] MEDS ORDERED: LACTATED RINGERS 1,000 ML 1,000 ML IV STA (08:23)
[2023-02-28 08:34] VITALS: BP 131/70
--- NOTE | 2023-02-28 09:30 | Progress Note-Pre Operative ---
Pre-Operative Progress Note Date of Available H&P: Feb 15, 2023 Date H&P Reviewed: Feb 28, 2023 Time H&P Reviewed: 09:28 History & Physical: H&P Reviewed, Patient Examed, No changes noted Pre-Operative Diagnosis: Hx of polyps MELY CASTILLO DO Feb 28, 2023 09:30
--- NOTE | 2023-02-28 10:36 | Progress Note-Post Operative ---
Post-Operative Progess Note Surgeon (s)/Consulting Services Project Manager (s) Surgeon MELY CASTILLO DO Consulting Services Project Manager: OSCAR LindaII Pre-Operative Diagnosis Hx of polyps Post-Operative Diagnosis Polyp int hemorrhoids Procedure & Operative Findings Date of Procedure 02/28/23 Procedure Performed/Findings Colonoscopy with snare PROCEDURE NOTE: After informed consent was obtained, the patient was brought to the endoscopy suite, placed in bed in left lateral decubitus position. She was administered IV sedation by the BLEACH BOILER PACKER who then monitored her vitals the entire time, heart rate, blood pressure and pulse ox and the scope was inserted, pushed all the way to about 100 cm and pushed into the cecum, took a picture of appendiceal orifice and noted the ileocecal valve. Then slowly withdrew the scope insufflating to look circumferentially at the khan starting in the cecum, up the ascending colon to the hepatic flexure, then down the transverse colon, splenic flexure, into the descending colon and down into the sigmoid. I found a very small polyp here and did a snare polypectomy, had a hard time finding the polyp and did a biopsy to be safe. Finally, into the rectal vault and retroflexed the scope. Took a picture of the internal hemorrhoids. The patient tolerated the procedure. She was recovered in endoscopy suite. Recommended for repeat colonoscopy in 5 years. Anesthesia Type IV sedation by BLEACH BOILER PACKER Estimated Blood Loss Estimated blood loss (mL): scant Specimens/Packing Specimens Removed sigmoid polyp MELY CASTILLO DO Feb 28, 2023 10:36
--- NOTE | 2023-02-28 10:37 | Endoscopy Discharge Instruct ---
Endo Procedure/Findings Findings 1.: Polyp 2.: Internal Hemorrhoids Discharge Instructions - Activity: You might feel a little sleepy until tomorrow. This is due to the medicine you received to relax you. Until tomorrow, you should: NOT drive a car, operate machinery or power tools. NOT drink any alcoholic beverages. NOT make any important decisions or sign importortant papers. Do not return to work until tomorrow, unless otherwise instructed. Resume previous activities tomorrow. Diet: Start by taking liquids. If you tolerate liquids, advance to solid food. 1.: Colonscopy in 5 years Notify Physician - If you experience excessive bleeding, unusual abdominal pain, fever, or chest pain, contact your doctor immediately. Follow-Up: Other Follow up in my office in one week MELY CASTILLO DO Feb 28, 2023 10:37
[2023-02-28 10:45] VITALS: BP 110/61
[2023-02-28 11:03] VITALS: BP 131/70
[2023-02-28 11:15] VITALS: BP 131/70
--- NOTE | 2023-02-28 17:12 | Anesthesia-General Post-Op ---
MAC Patient Condition Mental Status/LOC: Same as Preop Cardiovascular: Satisfactory Nausea/Vomiting: Absent Respiratory: Satisfactory Pain: Controlled Complications: Absent Post Op Complications Complications None Follow Up Care/Instructions Patient Instructions None needed. Anesthesiology Discharge Order Discharge Order Patient is doing well, no complaints, stable vital signs, no apparent adverse anesthesia problems. No complications reported per nursing. CHRISTINA YEH CRNA Feb 28, 2023 17:12
== END 2023-02-28 11:20 | disposition home or self-care (01) ==
LOC: ENDO 08:18
PROVIDERS: ATTEND Surgery
DX: Z12.11 Encounter for screening for malignant neoplasm of colon (principal); K64.8 Other hemorrhoids; K63.5 Polyp of colon